=== PATIENT | male | born 1975 | race African-American/Black ===

== ENCOUNTER 2016-08-14 17:24 | Emergency (ER) | payer SELFPAY ==
[2016-08-14 18:13] LABS: BASOPHIL 0.3 % (0-2); EOSINOPHIL 1.7 % (0-5); HCT 42.7 % (42.0-52.0); HGB 14.6 g/dl (13.2-18.0); LYMPHOCYTE 31.8 % (15-48); MCH 27.4 pg (25.0-31.0); MCHC 34.2 g/dL (32.0-36.0); MCV 80.3 fL (78.0-100.0); MONOCYTE 7.1 % (0-12); MPV 11.1 fL (6.0-9.5); NEUTROPHIL 59.1 % (41-80); PLT 184 K/uL (150-400); RBC 5.32 M/uL (4.70-6.00); RDW 15.1 % (11.5-14.0); WBC 7.2 K/uL (4.0-10.5)
[2016-08-14 18:54] LABS: BILIRUBIN - TOTAL 0.3 mg/dL (0.1-1.0); GLOBULIN (CALCULATION) 2.8 g/dL (2.2-4.2); POTASSIUM 3.9 mmol/L (3.5-5.1); TOTAL PROTEIN 6.8 g/dL (6.4-8.3)
== END 2016-08-14 20:49 | disposition home or self-care (01) ==
LOC: FER 17:24
PROVIDERS: Internal Medicine
DX: R07.89 Other chest pain (principal); F17.210 Nicotine dependence, cigarettes, uncomplicated
CPT/HCPCS: 36415; 71010; 80053; 84484; 85025; 93005; J1885; J2060

== ENCOUNTER 2020-12-06 08:59 | Emergency (ER) | payer OTHER ==
[~2020-12-06 08:59] MED LIST: BACLOFEN 10MG T10 MG PO; IBUPROFEN800 MG PO; IMITREX50 MG PO; MEDROL 4MG DOSEP4 MG PO; NAPROXEN500 MG PO; PEPCID AC20 MG PO; PREDNISONE 20MG20 MG PO; ROBAXIN500 MG PO; VOLTAREN **OUT75 MG PO
[2020-12-06] MEDS ORDERED: ROBAXIN750 MG PO (10:50)
[2020-12-06] MEDS ORDERED: NAPROXEN500 MG PO (10:50)
== END 2020-12-06 11:19 | disposition home or self-care (01) ==
LOC: FER 08:59
DX: S33.5XXA Sprain of ligaments of lumbar spine, initial encounter (principal); S70.02XA Contusion of left hip, initial encounter; F17.210 Nicotine dependence, cigarettes, uncomplicated; W22.8XXA Striking against or struck by other objects, initial encounter; Y92.69 Other specified industrial and construction area as the place of occurrence of the external cause; Y99.0 Civilian activity done for income or pay
CPT/HCPCS: 72131; 72192; 73502

== ENCOUNTER 2021-08-28 10:27 | Emergency (ER) | payer OTHER ==
[~2021-08-28 10:27] MED LIST changes: +ROBAXIN750 MG PO
[2021-08-28 11:18] LABS: BASOPHIL 0.4 % (0-2); EOSINOPHIL 0.9 % (0-5); HCT 49.4 % (42.0-52.0); HGB 15.9 g/dl (13.2-18.0); LYMPHOCYTE 30.4 % (15-48); MCHC 32.2 g/dL (32.0-36.0); MCV 83.9 fL (78.0-100.0); MONOCYTE 8.6 % (0-12); MPV 11.3 fL (6.0-9.5); NEUTROPHIL 59.5 % (41-80); NRBC 0; PLT 199 K/uL (150-400); RBC 5.89 M/uL (4.70-6.00); RDW 14.3 % (11.5-14.0); WBC 5.6 K/uL (4.0-10.5)
[2021-08-28 11:35] LABS: ALBUMIN 3.7 g/dL (3.4-5.0); BILIRUBIN - TOTAL 0.5 mg/dL (0.2-1.0); BUN/CREAT RATIO (CALC) 10.7 RATIO; CREATININE 1.03 mg/dL (0.67-1.17); GLOBULIN (CALCULATION) 3.7 g/dL; TOTAL PROTEIN 7.4 g/dL (6.4-8.2)
[2021-08-28 11:36] LABS: INR 1.07 (0.9-1.2); PROTHROMBIN TIME 13.3 SECONDS (11.8-13.4); PTT 26.6 SECONDS (24.4-34.7)
== END 2021-08-28 14:20 | disposition home or self-care (01) ==
LOC: FER 10:27
PROVIDERS: Emergency Medicine
DX: R07.89 Other chest pain (principal); F17.210 Nicotine dependence, cigarettes, uncomplicated; Z28.310 Unvaccinated for COVID-19
CPT/HCPCS: 36415; 71045; 80053; 84484; 85025; 85610; 85730; 93005